=== PATIENT | female | born 2000 | race African-American/Black ===

== ENCOUNTER 2020-02-23 09:01 | Emergency (ER) | payer OTHER ==
[~2020-02-23] VITALS: Ht 165.1 cm; Wt 63.5 kg
[2020-02-23 09:07] VITALS: Ht 165.1 cm; Wt 63.5 kg
[2020-02-23 11:03] VITALS: BP 118/73
== END 2020-02-23 11:03 | disposition home or self-care (01) ==
LOC: ED 09:01
DX: R07.89 Other chest pain (principal)
CPT/HCPCS: J1885; Q0092